=== PATIENT | female | born 2000 | race Hispanic/Latino ===

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

== ENCOUNTER → 2019-06-01 | Outpatient (REF) | payer OTHER ==
[2019-06-01 21:10] LABS: CHLAMYDIA DNA AMPLIFICATION NEGATIVE (NEGATIVE); GC DNA AMPLIFICATION NEGATIVE (NEGATIVE)
== END ==
LOC: M SFHCPLAZ 18:07
PROVIDERS: ATTEND Nurse Practitioner Family
DX: Z11.3 Encounter for screening for infections with a predominantly sexual mode of transmission (principal)

== ENCOUNTER 2020-07-19 21:15 | Emergency (ER) | payer BC, MEDICAID, OTHER ==
[~2020-07-19] VITALS: Ht 154.9 cm; Wt 63.3 kg
[2020-07-19 23:30] VITALS: BP 129/72
--- NOTE | 2020-07-20 11:00 | REP ---
INDICATION: fall on abdomen, resolved pain, 14 weeks by history. COMPARISON: None. TECHNIQUE: Real-time sonographic evaluation of pelvis. FINDINGS: There is a single living intrauterine gestation. The estimated gestational age is reportedly 14 weeks 3 days, EDC 01/14/2021. Measurements were not requested today. The heart rate is 160 beats per minute. The placenta is anterior and low lying, grade 0. There is no evidence of abruption. However, at least portion of the placenta appears to cover the internal cervical os. The amniotic fluid appears within normal limits. IMPRESSION: Single living intrauterine gestation with heart rate 160 beats per minute as discussed above. There may be some degree of placenta previa. Recommend follow-up study with transvaginal imaging. Preliminary report provided by [facility] at the time of the exam. <Electronically signed by Robert Sequeira > 07/20/20 [id number]
== END 2020-07-19 23:30 | disposition home or self-care (01) ==
LOC: M ED 21:15
DX: Z04.89 Encounter for examination and observation for other specified reasons (principal); R10.9 Unspecified abdominal pain; W01.0XXA Fall on same level from slipping, tripping and stumbling without subsequent striking against object, initial encounter; Y92.9 Unspecified place or not applicable; Y93.9 Activity, unspecified; Y99.9 Unspecified external cause status; Z3A.14 14 weeks gestation of pregnancy